=== PATIENT | male | born 1985 | race Caucasian/White ===

== ENCOUNTER 2017-03-14 00:10 | Emergency (ER) | payer SELFPAY ==
[~2017-03-14] VITALS: Ht 170.2 cm; Wt 65.0 kg
[2017-03-14 00:21] VITALS: BP 127/77; PULSE 92; RESP 18; TEMP 97.9; O2SAT 100
[2017-03-14] MEDS ORDERED: SODIUM CHLORIDE 0.9% FLUSH 10 ML FLUSH IVF PRN (00:30)
--- NOTE | 2017-03-14 00:38 | PD ---
HPI Chief Complaint: Psychiatric Symptoms Time Seen by Provider: 00:22 Travel History International Travel<30 days: No Contact w/Intl Traveler<30days: No Traveled to known affect area: No History of Present Illness HPI Patient is a 32 year old male who presents to the ER for psychiatric evaluation. Patient reports that he got into a fight with his boyfriend billy , reports that his boyfriend was convinced that he was cheating on him. Reports that his boyfriend was telling bystanders that he a snitch for the police and patient thought that he was going to get hurt by the bystanders. Patient reports that he felt extremely anxious and had an episode of chest pain with sob during this argument. Reports that he is addicted to methamphetamines and understands that this does not help with his anxiety problems. Patient denies suicidal or homicidal ideations at this time, reports that he is anxious and would like to talk to someone. Patient with no chest pain or shortness of breath at this time. Patient denies any medical problems. Denies use of any other drugs besides methamphetamines. Reports that he is paranoid that people are trying to kill him and wants to talk to someone about his paranoia PFS Past Medical History Medical History: Denies Significant Hx Past Surgical History Surgical History: No Previous Surgery Social History Alcohol Use: Yes Tobacco Use: Yes Substance Use: Yes Allergies-Medications (Allergen,Severity, Reaction): Coded Allergies: amoxicillin (Verified Allergy, Unknown, Hives, 03/14/17) Reported Meds & Prescriptions Reported Meds & Active Scripts Active No Active Prescriptions or Reported Medications Review of Systems General / Constitutional: No: Fever Eyes: No: Visual changes HENT: No: Headaches Cardiovascular: Positive: Chest Pain or Discomfort, No: Palpitations, Irregular Rhythm Respiratory: Positive: Shortness of Breath Gastrointestinal: No: Abdominal Pain Genitourinary: No: Dysuria Musculoskeletal: No: Pain Skin: No Rash Neurologic: No: Weakness Psychiatric: Positive: Depression, No: Suicidal Ideations, Homicidal Ideation Endocrine: No: Polydipsia Hematologic/Lymphatic: No: Easy Bruising Physical Exam Narrative GENERAL: NAD SKIN: Focused skin assessment warm/dry. HEAD: Atraumatic. Normocephalic. EYES: Pupils equal and round. No scleral icterus. No injection or drainage. ENT: No nasal bleeding or discharge. Mucous membranes pink and moist. NECK: Trachea midline. No JVD. CARDIOVASCULAR: Regular rate and rhythm. No murmur appreciated. RESPIRATORY: No accessory muscle use. Clear to auscultation. Breath sounds equal bilaterally. GASTROINTESTINAL: Abdomen soft, non-tender, nondistended. Hepatic and splenic margins not palpable. MUSCULOSKELETAL: No obvious deformities. No clubbing. No cyanosis. No edema. NEUROLOGICAL: Awake and alert. No obvious cranial nerve deficits. Motor grossly within normal limits. Normal speech. PSYCHIATRIC: Anxious mood and affect, denies si/hi. Data Data Last Documented VS Vital Signs Date Time Temp Pulse Resp B/P (MAP) Pulse Ox O2 Delivery O2 Flow Rate FiO2 03/14/17 00:21 97.9 92 18 127/77 (94) 100 Orders Orders Complete Blood Count With Diff (03/14/17:27) Comprehensive Metabolic Panel (03/14/17:27) Iv Access Insert/Monitor (03/14/17 00:27) Ecg Monitoring (03/14/17:27) Psych Screen (03/14/17:) Sodium Chloride 0.9% Flush (Ns Flush) (03/14/17 00:30) Drug Screen, Random Urine (03/14/17:27) Alcohol (Ethanol) (03/14/17:27) Electrocardiogram (03/14/17:) Chest, Single Ap (03/14/17:27) MDM Medical Decision Making Medical Screen Exam Complete: Yes Emergency Medical Condition: Yes Medical Record Reviewed: Yes Interpretation(s) EKG at 0043: NSR at 63bpm, qt/qtc: 407/414, no acute st or t wave changes Vital Signs Date Time Temp Pulse Resp B/P (MAP) Pulse Ox O2 Delivery O2 Flow Rate FiO2 03/14/17 00:21 97.9 92 18 127/77 (94) 100 Differential Diagnosis anxiety reaction, drug abuse, acs though unlikely, electrolyte abnormality Narrative Course Patient with no si/hi. Patient was placed on a technology recruiter upon arrival to the ER. xray of chest ordered as well as psychiatric screening labs. Patient denies si/hi - understands that there is no detox here at [facility]. Patient with no chest pain at this time - ekg ordered. Plan to monitor on technology recruiter. Patient denies si/hi - he does want to see psych as he is paranoid that people are trying to kill him. Diagnosis Primary Impression: Drug addiction Additional Impression: Depression Patient Instructions: General Instructions Additional Instructions: Please follow up with your primary care doctor Return to ER as needed Scripts No Active Prescriptions or Reported Meds Shelly Hinojosa DO Mar 14, 2017 00:38
--- NOTE | 2017-03-14 00:52 | RADRPT ---
EXAM DATE/TIME: 03/14/2017 01:25 [facility] COMPARISON: No previous studies available for comparison. INDICATIONS : Chest pain. MEDICAL HISTORY : None. SURGICAL HISTORY : None. ENCOUNTER: Initial ACUITY: 1 day PAIN SCORE: 5/10 LOCATION: Bilateral chest FINDINGS: A single view of the chest demonstrates the lungs to be symmetrically aerated without evidence of mas s, infiltrate or effusion. The cardiomediastinal contours are unremarkable. Osseous structures are intact. CONCLUSION: No evidence of acute cardiopulmonary disease. Kali Corbin MD on March 14, 2017 at 0:51 Board Certified Radiologist. This report was verified electronically.
[2017-03-14 01:07] LABS: AUTOMATED NEUTROPHIL # 6.5 TH/MM3 (1.8-7.7); BASOPHIL # 0.1 TH/MM3 (0-0.2); BASOPHIL % 0.6 % (0.0-2.0); EOSINOPHIL # 0.1 TH/MM3 (0-0.4); HEMATOCRIT 42.7 % (39.0-51.0); HEMOGLOBIN 14.7 GM/DL (13.0-17.0); LYMPH % 12.1 % (9.0-44.0); MEAN CELL VOLUME 91.8 FL (80.0-100.0); MEAN CORPUSCULAR HEMOGLOBIN 31.6 PG (27.0-34.0); MEAN CORPUSCULAR HGB CONC 34.4 % (32.0-36.0); MEAN PLATELET VOLUME 8.6 FL (7.0-11.0); MONO % 8.7 % (0.0-8.0); MONOCYTE # 0.7 TH/MM3 (0-0.9); NEUT % 77.6 % (16.0-70.0); PLATELET COUNT 279 TH/MM3 (150-450); RED BLOOD COUNT 4.65 MIL/MM3 (4.50-5.90); RED CELL DISTRIBUTION WIDTH 14.1 % (11.6-17.2); WHITE BLOOD COUNT 8.4 TH/MM3 (4.0-11.0)
[2017-03-14 01:30] LABS: ALBUMIN 4.3 GM/DL (3.4-5.0); ALT (GPT) 26 U/L (12-78); AST (GOT) 28 U/L (15-37); BLOOD UREA NITROGEN 14 MG/DL (7-18); CHLORIDE 104 MEQ/L (98-107); CREATININE 0.82 MG/DL (0.60-1.30); GLOMERULAR FILTRATION RATE 108 ML/MIN (>89); GLUCOSE,RANDOM 78 MG/DL (74-106); SODIUM (NA) 138 MEQ/L (136-145)
[2017-03-14 01:32] LABS: ALKALINE PHOSPHATASE 75 U/L (45-117); TOTAL PROTEIN 8.2 GM/DL (6.4-8.2)
--- NOTE | 2017-03-14 03:53 | PD ---
Physical Exam Date Seen by Provider: Mar 14, 2017 Time Seen by Provider: 03:51 Data Data Last Documented VS Vital Signs Date Time Temp Pulse Resp B/P (MAP) Pulse Ox O2 Delivery O2 Flow Rate FiO2 03/14/17 00:21 97.9 92 18 127/77 (94) 100 Orders Orders Complete Blood Count With Diff (03/14/17 00:27) Comprehensive Metabolic Panel (03/14/17 00:27) Iv Access Insert/Monitor (03/14/17 00:27) Ecg Monitoring (03/14/17:27) Psych Screen (03/14/17:27) Sodium Chloride 0.9% Flush (Ns Flush) (03/14/17 00:30) Drug Screen, Random Urine (03/14/17:27) Alcohol (Ethanol) (03/14/17 00:27) Electrocardiogram (03/14/17 00:27) Chest, Single Ap (03/14/17 00:27) Labs Laboratory Tests Test 03/14/17 00:55 White Blood Count 8.4 TH/MM3 Red Blood Count 4.65 MIL/MM3 Hemoglobin 14.7 GM/DL Hematocrit 42.7 % Mean Corpuscular Volume 91.8 FL Mean Corpuscular Hemoglobin 31.6 PG Mean Corpuscular Hemoglobin Concent 34.4 % Red Cell Distribution Width 14.1 % Platelet Count 279 TH/MM3 Mean Platelet Volume 8.6 FL Neutrophils (%) (Auto) 77.6 % Lymphocytes (%) (Auto) 12.1 % Monocytes (%) (Auto) 8.7 % Eosinophils (%) (Auto) 1.0 % Basophils (%) (Auto) 0.6 % Neutrophils # (Auto) 6.5 TH/MM3 Lymphocytes # (Auto) 1.0 TH/MM3 Monocytes # (Auto) 0.7 TH/MM3 Eosinophils # (Auto) 0.1 TH/MM3 Basophils # (Auto) 0.1 TH/MM3 CBC Comment DIFF FINAL Differential Comment Blood Urea Nitrogen 14 MG/DL Creatinine 0.82 MG/DL Random Glucose 78 MG/DL Total Protein 8.2 GM/DL Albumin 4.3 GM/DL Calcium Level 9.0 MG/DL Alkaline Phosphatase 75 U/L Aspartate Amino Transf (AST/SGOT) 28 U/L Alanine Aminotransferase (ALT/SGPT) 26 U/L Total Bilirubin 1.0 MG/DL Sodium Level 138 MEQ/L Potassium Level 3.3 MEQ/L Chloride Level 104 MEQ/L Carbon Dioxide Level 22.0 MEQ/L Anion Gap 12 MEQ/L Estimat Glomerular Filtration Rate 108 ML/MIN Ethyl Alcohol Level LESS THAN 3 MG/DL [facility] Medical Record Reviewed: Yes Supervised Visit with BECCA: Yes Interpretation(s) Laboratory Tests Test 03/14/17 00:55 White Blood Count 8.4 TH/MM3 Red Blood Count 4.65 MIL/MM3 Hemoglobin 14.7 GM/DL Hematocrit 42.7 % Mean Corpuscular Volume 91.8 FL Mean Corpuscular Hemoglobin 31.6 PG Mean Corpuscular Hemoglobin Concent 34.4 % Red Cell Distribution Width 14.1 % Platelet Count 279 TH/MM3 Mean Platelet Volume 8.6 FL Neutrophils (%) (Auto) 77.6 % Lymphocytes (%) (Auto) 12.1 % Monocytes (%) (Auto) 8.7 % Eosinophils (%) (Auto) 1.0 % Basophils (%) (Auto) 0.6 % Neutrophils # (Auto) 6.5 TH/MM3 Lymphocytes # (Auto) 1.0 TH/MM3 Monocytes # (Auto) 0.7 TH/MM3 Eosinophils # (Auto) 0.1 TH/MM3 Basophils # (Auto) 0.1 TH/MM3 CBC Comment DIFF FINAL Differential Comment Blood Urea Nitrogen 14 MG/DL Creatinine 0.82 MG/DL Random Glucose 78 MG/DL Total Protein 8.2 GM/DL Albumin 4.3 GM/DL Calcium Level 9.0 MG/DL Alkaline Phosphatase 75 U/L Aspartate Amino Transf (AST/SGOT) 28 U/L Alanine Aminotransferase (ALT/SGPT) 26 U/L Total Bilirubin 1.0 MG/DL Sodium Level 138 MEQ/L Potassium Level 3.3 MEQ/L Chloride Level 104 MEQ/L Carbon Dioxide Level 22.0 MEQ/L Anion Gap 12 MEQ/L Estimat Glomerular Filtration Rate 108 ML/MIN Ethyl Alcohol Level LESS THAN 3 MG/DL Differential Diagnosis . Narrative Course The patient is been medically cleared. There is no evidence of any acute ischemic changes. Patient is a substance abuser. His psychological evaluation is compatible with his substance abuse. He does not meet criteria for inpatient management. He is not a threat to himself or others. This is drug addition, depression, substance induced psychosis Diagnosis Primary Impression: Drug addiction Additional Impressions: Depression Qualified Codes: F32.9 - Major depressive disorder, single episode, unspecified Substance-induced psychotic disorder with delusions Patient Instructions: General Instructions Additional Instruction: Rest. Increase fluids. Avoid alcohol. Avoid illegal substances. Follow-up with [facility] for detox. Do not operate a car or any heavy machinery under the influence of alcohol or drugs. Follow-up with a medical doctor this week. Return to the ER for emergencies Please follow up with your primary care doctor Return to ER as needed Med/Other Pt SpecificInfo: No Meds Exist/No RX given Scripts No Active Prescriptions or Reported Meds Disposition: 01 DISCHARGE HOME Condition: Stable Gera Pike Mar 14, 2017 03:53
[2017-03-14 06:30] VITALS: BP 107/67; PULSE 81; RESP 19; O2SAT 96
--- NOTE | 2017-03-14 19:31 | EKG ---
Date Performed: 03/14/2017 Time Performed: 00:43:58 PTAGE: 32 years EKG: Sinus rhythm NORMAL ECG NO PREVIOUS TRACING DOCTOR: Gopi Goyal Interpretating Date/Time 03/14/2017 19:28:33
--- NOTE | 2017-03-14 19:31 | EKG ---
Date Performed: 03/14/2017 Time Performed: 00:43:58 PTAGE: 32 years EKG: Sinus rhythm NORMAL ECG NO PREVIOUS TRACING DOCTOR: Gopi Goyal Interpretating Date/Time 03/14/2017 19:28:33
--- NOTE | 2017-03-14 19:31 | EKG ---
Date Performed: 03/14/2017 Time Performed: 00:43:58 PTAGE: 32 years EKG: Sinus rhythm NORMAL ECG NO PREVIOUS TRACING DOCTOR: Gopi Goyal Interpretating Date/Time 03/14/2017 19:28:33
== END 2017-03-14 06:47 | disposition home or self-care (01) ==
LOC: NEPD 00:10
DX: F32.9 Major depressive disorder, single episode, unspecified (principal); F15.250 Other stimulant dependence with stimulant-induced psychotic disorder with delusions; R07.9 Chest pain, unspecified; R06.02 Shortness of breath; Z88.0 Allergy status to penicillin; Z72.0 Tobacco use
CPT/HCPCS: 71010; 80053; 80307; 85025; 93005